=== PATIENT | female | born 1925 | race Caucasian/White ===

== ENCOUNTER → 2016-07-25 | Outpatient (CLI) | payer BC ==
[~2016-07-25] MED LIST: ACET-1311 PO; ASPI325T45 PO; ATV5 PO; BIOT1TAB5 PO; CHOL1000 PO; CYAN500T PO; DILT120C68 PO; DOCU100C22 PO; FOLI1TAB7 PO; FURO-85 PO; IPRASOL4 INH; LATA0.009 OPB; LATA0.5S OPB; MULT-506 PO; NAPR250T2 PO; POLY99.02 OPB; POTA20TA13 PO; QUET1TAB30 PO; RXNS5 SL; SERT-234 PO; SERT50TA PO; SYMIN160 INH; ULT50X PO
[2016-07-25 09:40] LABS: MANUAL MICROSCOPIC REQUIRED? NO; REVIEW REQ? NO; URINE APPEARANCE CLOUDY (CLEAR); URINE BILIRUBIN NEG (NEG); URINE COLOR DK YELLOW; URINE EPITHELIAL CELL AUTO >30 /lpf (0-5); URINE NITRITE NEG (NEG); URINE PH 5.5 (4.5-7.5); URINE SPECIFIC GRAVITY 1.016 (1.000-1.030); UROBILINOGEN NEG (NEG)
== END ==
LOC: C.LABOUTLO 08:53
PROVIDERS: ATTEND Family Medicine Adult Medicine
DX: N39.0 Urinary tract infection, site not specified (principal)